=== PATIENT | female | born 1945 | race Caucasian/White ===

== ENCOUNTER 2016-11-16 15:51 | Emergency (ER) | payer MEDICARE, OTHER ==
--- NOTE | ~2016-11-16 | CR20 ---
[facility]. [facility] A Service of [facility] & [facility] RADIOLOGY TEXT RESULTS PATIENT: REDD CEDILLO LOCATION: SED : 41 UNIT #: [id number] AGE: [address]: JOSEPH ROJO SEX: F ORDER DR: [id number] [place] [id number] E MR#: [id number] Acc #: [id number] NAME: REDD CEDILLO : 1945 SEX: F STUDY DATE/TIME: 11/16/2016 16:31 UNIT: SED ROOM: STUDY DESCRIPTION: CR Ankle Min 3 Views Lt Attending Physician: Joseph Rojo A.P.R.N. Ordering Physician: David Rojo Primary Care Physician: Cresencio Stratton M.D. MEDICAL IMAGING REPORT This report is preliminary unless electronic signature is present. EXAM Left ankle 3 views date of study 11/16/2016 HISTORY 3 day history of pain after fall down steps. FINDINGS Negative for fracture or dislocation. Medial and lateral soft tissue swelling. Dictated by... Bishnu Ayoub M.D. THIS IS AN ELECTRONICALLY VERIFIED REPORT Bishnu Ayoub M.D. at 11/26/2016 3:59 PM TEV/rnr TD: 11/16/2016 23:23 JOB #: [id number] MEDICAL IMAGING REPORT Page 1 of 1
--- NOTE | ~2016-11-16 | CR126 ---
[facility]. [facility] A Service of [facility] & [facility] RADIOLOGY TEXT RESULTS PATIENT: REDD CEDILLO LOCATION: SED : 41 UNIT #: [id number] AGE: [address]: JOSEPH ROJO SEX: F ORDER DR: [id number] [place] [id number] E MR#: [id number] Acc #: [id number] NAME: REDD CEDILLO : 1945 SEX: F STUDY DATE/TIME: 11/16/2016 16:31 UNIT: SED ROOM: STUDY DESCRIPTION: CR Foot Complete Min 3 View Lt Attending Physician: Joseph Rojo A.P.R.N. Ordering Physician: Joseph Rojo A.P.R.N. Primary Care Physician: Cresencio Stratton M.D. MEDICAL IMAGING REPORT This report is preliminary unless electronic signature is present. EXAM Left foot, 3 views; 11/16/16. HISTORY Pain for 3 days after fall. FINDINGS There is no fracture or dislocation. There is some calcification near the head of the second metatarsal, which may be degenerative, but no acute bony abnormality is seen. Dictated by... Bishnu Ayoub M.D. THIS IS AN ELECTRONICALLY VERIFIED REPORT Bishnu Ayoub M.D. at 11/26/2016 3:59 PM LISETH/deb TD: 11/16/2016 23:21 JOB #: [id number] MEDICAL IMAGING REPORT Page 1 of 1
[~2016-11-16 15:51] MED LIST: ASPIRIN81 MG PO; CLOPIDOGREL75 MG PO; LIPITOR40 MG PO; LOPRESSOR PO; NITROGLYGERIN0.4 MG SL; RANEXA500 MG PO
== END 2016-11-16 17:30 | disposition home or self-care (01) ==
LOC: SED 15:51
DX: S93.402A Sprain of unspecified ligament of left ankle, initial encounter (principal); S93.602A Unspecified sprain of left foot, initial encounter; I25.2 Old myocardial infarction; I10 Essential (primary) hypertension; W18.30XA Fall on same level, unspecified, initial encounter; Y92.89 Other specified places as the place of occurrence of the external cause
CPT/HCPCS: 29405; 73610; 73630; 99284